=== PATIENT | male | born 1985 | race Caucasian/White ===

== ENCOUNTER 2017-06-17 13:05 | Inpatient (IN) | payer SELFPAY ==
[2017-06-17] MEDS ORDERED: HYDROCODONE/ACETAMINOPHEN 5-325 MG TABLET PO ONE (13:46)
--- NOTE | 2017-06-17 14:01 | ER Document Report ---
ED Hand/Wrist Injury - General Mode of Arrival: Ambulatory Information source: Patient TRAVEL OUTSIDE OF THE [place] IN LAST 30 DAYS: No - HPI Injury to: Middle finger Onset: Other - Where: Work Timing: Still present Quality of pain: Pressure, Sharp Severity: Severe Pain Level: 5 Context: Swelling <HARJINDER CARPENTER - Last Filed: 06/17/17 18:04> <RIA GENAO - Last Filed: 06/17/17 18:37> - General Chief Complaint: Finger Injury Stated Complaint: FINGER INJURY Time Seen by Provider: 06/17/17 13:37 Notes: 31-year-old male presents to ED for pain swelling and infection to the right middle finger. He states that he thinks he got a piece of wire and it either or Saturday. He states it is been swelling and getting more more painful each day. 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 (HARJINDER CARPENTER) - Related Data Allergies/Adverse Reactions: No Known Allergies Allergy (Unverified 06/17/17 13:24) Home Medications: Current Home Medications Cyanocobalamin (Vitamin B-12) [Vitamin B-12] 500 mcg PO DAILY 06/17/17 [History] Past Medical History - Social History Smoking Status: Current Every Day Smoker Chew tobacco use (# tins/day): No Frequency of alcohol use: None Drug Abuse: None Renal/ Medical History: Denies: Hx Peritoneal Dialysis Surgical Hx: Negative - Immunizations Hx Diphtheria, Pertussis, Tetanus Vaccination: Yes <HARJINDER CARPENTER - Last Filed: 06/17/17 18:04> - General Information source: Patient - Social History Family History: Reviewed & Not Pertinent <RIA GENAO - Last Filed: 06/17/17 18:37> Physical Exam - Vital signs Interpretation: Normal - General General appearance: Appears well, Alert - HEENT Head: Normocephalic, Atraumatic Eyes: Normal Pupils: PERRL - Respiratory Respiratory status: No respiratory distress Chest status: Nontender Breath sounds: Normal Chest palpation: Normal - Cardiovascular Rhythm: Regular Heart sounds: Normal auscultation Murmur: No - Abdominal Inspection: Normal Distension: No distension Bowel sounds: Normal Tenderness: Nontender Organomegaly: No organomegaly - Back Back: Normal, Nontender - Extremities General upper extremity: Normal temperature General lower extremity: Normal inspection, Nontender, Normal color, Normal ROM , Normal temperature, Normal weight bearing. No: Laura's sign Wrist: Tender Hand: Tender, No evidence of human bite, No evidence of FB, Swelling, Other - erythema, decreased rom to 3rd finger - Neurological Neuro grossly intact: Yes Cognition: Normal Orientation: AAOx4 Pinky Coma Scale Eye Opening: Spontaneous Pinky Coma Scale Verbal: Oriented [place] Coma Scale Motor: Obeys Commands Pinky Coma Scale Total: 15 Speech: Normal Motor strength normal: LUE, RUE, LLE, RLE Sensory: Normal - Psychological Associated symptoms: Normal affect, Normal mood - Skin Skin Temperature: Warm Skin Moisture: Dry Skin Color: Normal <HARJINDER CARPENTER - Last Filed: 06/17/17 18:04> - Vital signs Vitals: Temp Pulse Resp BP Pulse Ox 98.4 F 99 16 132/77 H 98 06/17/17 13:25 06/17/17 13:25 06/17/17 13:25 06/17/17 13:25 06/17/17 13:25 Course - Laboratory Result Diagrams: 06/17/17 15:44 06/17/17 15:44 - Diagnostic Test Radiology reviewed: Image reviewed, Reports reviewed <HARJINDER CARPENTER - Last Filed: 06/17/17 18:04> - Laboratory Result Diagrams: 06/17/17 15:44 06/17/17 15:44 <RIA GENAO - Last Filed: 06/17/17 18:37> - Re-evaluation Re-evalutation: 06/17/17 15:[address] Genao for the infection and he stated that the orthopedic surgeon needs to be consulted. Consulted Dr. Rodriguez who stated that need to get a CBC chemistry blood cultures CRP and sed rate and he will come by and see the patient. He requested that no antibiotics be given at this time. (HARJINDER CARPENTER) Consulted by [facility]. 31-year-old male with swelling of his right middle finger. He has 4 out of 4 Knavel Signs. Concern for Flexor Tenosynovitis. Recommend consult with hand surgery and IV antibiotics. (RIA GENAO) - Vital Signs Vital signs: Temp Pulse Resp BP Pulse Ox 98.4 F 70 20 124/64 100 08/21/17 17:15 06/17/17 17:15 06/17/17 17:15 06/17/17 17:15 06/17/17 17:15 - Laboratory Laboratory results interpreted by me: 06/17/17 06/17/17 15:44 15:44 WBC 13.7 H Eosinophils % 10.5 H Absolute Neutrophils 8.3 H Absolute Eosinophils 1.4 H ESR 16 H Carbon Dioxide 31 H C-Reactive Protein 34.3 H Discharge - Discharge Admitting Provider: shanice Unit Admitted: Surgical Floor <HARJINDER CARPENTER - Last Filed: 06/17/17 18:04> <RIA GENAO - Last Filed: 06/17/17 18:37> - Discharge Clinical Impression: cellulitis third finger right Disposition: ADMITTED INPATIENT
--- NOTE | 2017-06-17 14:19 | RADIOLOGY REPORT (SQ) ---
EXAM DESCRIPTION: FINGER RIGHT COMPLETED DATE/TIME: 06/17/2017 2:00 pm REASON FOR STUDY: possible foreign body right middle finger COMPARISON: None. NUMBER OF VIEWS: Three views. TECHNIQUE: AP, lateral, and oblique images acquired of the right third finger. LIMITATIONS: None. FINDINGS: MINERALIZATION: Normal. BONES: No acute fracture or dislocation. No worrisome bone lesions. SOFT TISSUES: Soft tissue swelling is identified. No radiopaque foreign body is identified. OTHER: No other significant finding. IMPRESSION: Soft tissue swelling without fracture. No radiopaque foreign body is identified. COMMENT: SITE OF TRAUMA/COMPLAINT MARKED/STAMP COMPLETED: Yes TECHNICAL DOCUMENTATION: JOB ID: [id number] [employer]- All Rights Reserved
[2017-06-17] MEDS ORDERED: NORMAL SALINE 1000 ML 1,000 ML IV PRN (15:11)
[2017-06-17] MEDS ORDERED: NORMAL SALINE 1000 ML 1,000 ML IV ONE (15:11)
[2017-06-17 15:55] LABS: ABSOLUTE BASOPHILS # (AUTO) 0.1 10^3/uL (0.0-0.2); ABSOLUTE EOSINOPHILS # (AUTO) 1.4 10^3/uL (0.0-0.6); ABSOLUTE LYMPHOCYTES (AUTO) 3.1 10^3/uL (0.5-4.7); ABSOLUTE MONOCYTES (AUTO) 0.8 10^3/uL (0.1-1.4); ABSOLUTE NEUT (AUTO) 8.3 10^3/uL (1.7-8.2); BASOPHILS % (AUTO) 0.4 % (0-2); EOSINOPHILS % (AUTO) 10.5 % (0-6); HEMATOCRIT 45.2 % (37.9-51.0); HEMOGLOBIN 15.7 g/dL (13.5-17.0); HGB HCT DIFFERENCE 1.9; LYMPHOCYTES % (AUTO) 22.7 % (13-45); MEAN CORPUSCULAR HEMOGLOBIN 32.7 pg (27.0-33.4); MEAN CORPUSCULAR HGB CONC 34.7 g/dL (32.0-36.0); MEAN CORPUSCULAR VOLUME 94 fl (80-97); MONOCYTES % (AUTO) 5.6 % (3-13); RED BLOOD COUNT 4.79 10^6/uL (4.35-5.55); RED CELL DISTRIBUTION WIDTH 12.6 % (11.5-14.0); SEGMENTED NEUTROPHILS % (AUTO) 60.8 % (42-78); WHITE BLOOD COUNT 13.7 10^3/uL (4.0-10.5)
[2017-06-17] MEDS ORDERED: VANCOMYCIN HCL INJ 1000 MG VIAL IV ONE (16:08)
[2017-06-17] MEDS ORDERED: AMPICILLIN SOD/SULBACTAM 3 GM VIAL IV ONE (16:08)
[2017-06-17 16:19] LABS: ALANINE AMINOTRANSFERASE 54 U/L (21-72); ALBUMIN 3.9 g/dL (3.5-5.0); ALKALINE PHOSPHATASE 87 U/L (38-126); ANION GAP 9 (5-19); ASPARTATE AMINO TRANSFERASE 27 U/L (17-59); BILIRUBIN,DIRECT 0.4 mg/dL (0.0-0.4); BILIRUBIN,TOTAL 0.7 mg/dL (0.2-1.3); BLOOD UREA NITROGEN 10 mg/dL (7-20); C-REACTIVE PROTEIN 34.3 mg/L (<10.0); CALCIUM 9.6 mg/dL (8.4-10.2); CARBON DIOXIDE 31 mmol/L (22-30); CHLORIDE 100 mmol/L (98-107); CREATININE RESULT 0.85 mg/dL (0.52-1.25); GLUCOSE 78 mg/dL (75-110); POTASSIUM 4.1 mmol/L (3.6-5.0); SODIUM 139.9 mmol/L (137-145); TOTAL PROTEIN 6.6 g/dL (6.3-8.2)
[2017-06-17 16:33] LABS: ERYTHROCYTE SEDIMENTATION RATE 16 mm/hr (0-15)
[2017-06-17] MEDS ORDERED: GLUCAGON,HUMAN RECOMB 1 MG INJ SUBCUT PRN (17:04)
[2017-06-17] MEDS ORDERED: DEXTROSE 40% GEL 15 GM TUBE PO PRN ×2 (17:04)
[2017-06-17] MEDS ORDERED: ONDANSETRON HCL INJ/PF 4 MG/2 ML SDV IV PRN (17:04)
[2017-06-17] MEDS ORDERED: DEXTROSE 50%-WATER 25 GM/50 ML DISP.SYRIN IV PRN ×2 (17:04)
--- NOTE | 2017-06-17 17:17 | PDOC H&P ---
History of Present Illness Admission Date/PCP: 06/17/17 16:16 Patient complains of: Right middle finger swelling History of Present Illness: ERICKA CASTELLANOS is a 31 year old male who presents emergency room with increasing redness and swelling of his right middle finger. He states about 48 hours ago he began having redness and swelling of this digit. Initially thought there was a fiberoptic wire in his finger since he works for the [employer]. He attempted to decompress with a needle which provided him some relief. But he noticed redness swelling and discomfort returned over the past 24 hours. He has noticed mild fever no chills or sweats. Pain 05/06. Social History Smoking Status: Current Every Day Smoker Family History Parental Family History Reviewed: No Children Family History Reviewed: No Sibling(s) Family History Reviewed.: No Medication/Allergy Allergies/Adverse Reactions: No Known Allergies Allergy (Unverified 06/17/17 13:24) Review of Systems All systems: as per PMH Constitutional: ABSENT: chills, fever(s), headache(s), weight gain, weight loss Eyes: ABSENT: visual disturbances Ears: ABSENT: hearing changes Cardiovascular: ABSENT: chest pain, dyspnea on exertion, edema, orthropnea, palpitations Respiratory: ABSENT: cough, hemoptysis Gastrointestinal: ABSENT: abdominal pain, constipation, diarrhea, hematemesis, hematochezia, nausea, vomiting Genitourinary: ABSENT: dysuria, hematuria Integumentary: ABSENT: rash, wounds Neurological: ABSENT: abnormal gait, abnormal speech, confusion, dizziness, focal weakness, syncope Psychiatric: ABSENT: anxiety, depression, homidical ideation, suicidal ideation Endocrine: ABSENT: cold intolerance, heat intolerance, menstrual abnormalities, polydipsia, polyuria Hematologic/Lymphatic: ABSENT: easy bleeding, easy bruising, lymphadenopathy Physical Exam Vital Signs: Temp Pulse Resp BP Pulse Ox 98.4 F 99 16 132/77 H 98 06/17/17 13:25 06/17/17 13:25 06/17/17 13:25 06/17/17 13:25 06/17/17 13:25 General appearance: PRESENT: no acute distress, well-developed, well-nourished Head exam: PRESENT: atraumatic, normocephalic Eye exam: PRESENT: conjunctiva pink, EOMI, PERRLA. ABSENT: scleral icterus Ear exam: PRESENT: normal external ear exam Mouth exam: PRESENT: moist, tongue midline Neck exam: PRESENT: full ROM. ABSENT: carotid bruit, JVD, lymphadenopathy, thyromegaly Respiratory exam: PRESENT: unlabored Cardiovascular exam: PRESENT: RRR. ABSENT: diastolic murmur, rubs, systolic murmur Pulses: PRESENT: normal dorsalis pedis pul, +2 pedal pulses bilateral Vascular exam: PRESENT: normal capillary refill GI/Abdominal exam: PRESENT: normal bowel sounds, soft. ABSENT: distended, guarding, mass, organolmegaly, rebound, tenderness Rectal exam: PRESENT: deferred Musculoskeletal exam: PRESENT: other - Right hand: Notable redness along the ulnar dorsal aspect of the middle finger along the middle phalanx. Small lesion on the volar aspect for patient attempted decompression no active drainage from this area appreciated. Patient has tenderness volarly along the middle phalanx no tenderness on the proximal phalanx or in the palm. Cap refill less than 2 seconds. Patient has hypoesthesia along the ulnar digital nerve distribution. Digit certainly rests in an extended position. Pain is exacerbated with forced terminal flexion extension. Left Leg: Small lesion along the lateral aspect no active drainage. No streaking erythema. Neurological exam: PRESENT: alert, awake, oriented to person, oriented to place , oriented to time, oriented to situation, CN II-XII grossly intact. ABSENT: motor sensory deficit Psychiatric exam: PRESENT: appropriate affect, normal mood. ABSENT: homicidal ideation, suicidal ideation Skin exam: PRESENT: dry, intact, vesicles, warm. ABSENT: cyanosis, rash Results Impressions: Finger X-Ray 06/17/17 13:45 IMPRESSION: Soft tissue swelling without fracture. No radiopaque foreign body is identified. Assessment & Plan - Diagnosis (1) Cellulitis of right middle finger Is this a current diagnosis for this admission?: Yes Plan: On examination patient has findings of cellulitis of the right middle finger he may also have early onset flexor tenosynovitis at this point I have recommended IV antibiotics including Unasyn and vancomycin. If he fails to see significant improvement in the next 12-16 hours we will set him up for operative decompression. Patient is in agreement with the above plan.
[2017-06-17] MEDS: OXYCODONE-ACETAMINOPHEN 5-325 MG TABLET PO PRN ×2 (18:00→21:39)
[2017-06-17] MEDS ORDERED: VANCOMYCIN HCL INJ 1000 MG VIAL IV SCH (18:00)
[2017-06-17] MEDS ORDERED: AMPICILLIN SOD/SULBACTAM 3 GM VIAL IV SCH (18:00)
[2017-06-17] MEDS: RINGERS SOLUTION,LACTATED 1,000 ML IV PRN (18:06)
[2017-06-17] MEDS: AMPICILLIN SODIUM/SULBACTAM NA 3 GM in NORMAL SALINE 100 ML IV SCH (18:24)
[2017-06-17] MEDS: ZOLPIDEM TARTRATE 5 MG TABLET PO SCH (21:38)
[2017-06-17] MEDS: VANCOMYCIN HCL 1,500 MG in DEXTROSE 5%-WATER 250 ML IV SCH (21:39)
[2017-06-17] MEDS: MORPHINE SULFATE 10 MG/ML INJ IV PRN (22:06)
[2017-06-18] MEDS: AMPICILLIN SODIUM/SULBACTAM NA 3 GM in NORMAL SALINE 100 ML IV SCH ×4 (00:06→16:59)
[2017-06-18] MEDS: MORPHINE SULFATE 10 MG/ML INJ IV PRN ×8 (00:06→22:40)
[2017-06-18] MEDS: OXYCODONE-ACETAMINOPHEN 5-325 MG TABLET PO PRN ×3 (01:36→16:42)
[2017-06-18] MEDS: VANCOMYCIN HCL 1,500 MG in DEXTROSE 5%-WATER 250 ML IV SCH ×3 (03:44→16:17)
[2017-06-18] MEDS ORDERED: VANCOMYCIN HCL 1,500 MG in DEXTROSE 5%-WATER 250 ML IV SCH (06:00)
[2017-06-18 07:07] LABS: ABSOLUTE BASOPHILS # (AUTO) 0.1 10^3/uL (0.0-0.2); ABSOLUTE EOSINOPHILS # (AUTO) 1.5 10^3/uL (0.0-0.6); ABSOLUTE LYMPHOCYTES (AUTO) 3.9 10^3/uL (0.5-4.7); ABSOLUTE MONOCYTES (AUTO) 0.7 10^3/uL (0.1-1.4); BASOPHILS % (AUTO) 0.5 % (0-2); EOSINOPHILS % (AUTO) 12.1 % (0-6); HEMATOCRIT 39.1 % (37.9-51.0); LYMPHOCYTES % (AUTO) 31.8 % (13-45); MEAN CORPUSCULAR HEMOGLOBIN 33.1 pg (27.0-33.4); MEAN CORPUSCULAR HGB CONC 35.1 g/dL (32.0-36.0); MEAN CORPUSCULAR VOLUME 94 fl (80-97); MONOCYTES % (AUTO) 6.1 % (3-13); RED BLOOD COUNT 4.14 10^6/uL (4.35-5.55); RED CELL DISTRIBUTION WIDTH 12.6 % (11.5-14.0); SEGMENTED NEUTROPHILS % (AUTO) 49.5 % (42-78); WHITE BLOOD COUNT 12.1 10^3/uL (4.0-10.5)
[2017-06-18 07:08] LABS: HEMOGLOBIN 13.7 g/dL (13.5-17.0)
[2017-06-18] MEDS ORDERED: DEXAMETHASONE SOD PHOSPHATE INJ 4 MG/1 ML VIAL ONE (09:48)
[2017-06-18] MEDS ORDERED: LIDOCAINE 2% INJ-PF (20 MG/ML) 10 ML AMPUL ONE (09:48)
[2017-06-18] MEDS ORDERED: ONDANSETRON HCL INJ/PF 4 MG/2 ML SDV ONE (09:48)
[2017-06-18] MEDS ORDERED: SUCCINYLCHOLINE CHLORIDE INJ 200 MG/10 ML VIAL ONE (09:48)
--- NOTE | 2017-06-18 10:58 | PDOC PROGRESS REPORT ---
Subjective Progress Note for:: 06/18/17 Subjective:: Patient seen and evaluated on rounds this morning. States he continued to have considerable discomfort in his right middle finger is slightly improved with morphine but notes the pain and swelling have not improved with antibiotics. Has noted somewhat increased temperature denies chills. Physical Exam Vital Signs: Temp Pulse Resp BP Pulse Ox 99.3 F 65 18 156/55 H 95 06/18/17 08:30 06/18/17 08:30 06/18/17 08:30 06/18/17 08:30 06/18/17 08:30 Intake & Output 06/17/17 06/18/17 06/19/17 06:59 06:59 06:59 Intake Total 2067 70 Balance 2067 70 Weight 124.3 kg 124.3 kg Musculoskeletal exam: PRESENT: other - Right middle finger: Redness and swelling along the ulnar aspect of the middle finger there is increased swelling compared to previous examination likely in indicative of formation of abscess. Patient has no tenderness along the A1 suly mild tenderness along the palmar aspect of the middle phalanx and proximal phalanx. Minimal tenderness on the distal phalanx. Cap refill less than 2 seconds. Patient has hypoesthesia along the ulnar digital nerve distribution. Results Laboratory Results: 06/18/17 06:32 06/18/17 06:32 WBC 12.1 H RBC 4.14 L Hgb 13.7 Hct 39.1 MCV 94 MCH 33.1 MCHC 35.1 RDW 12.6 Plt Count 246 Seg Neutrophils % 49.5 Lymphocytes % 31.8 Monocytes % 6.1 Eosinophils % 12.1 H Basophils % 0.5 Absolute Neutrophils 6.0 Absolute Lymphocytes 3.9 Absolute Monocytes 0.7 Absolute Eosinophils 1.5 H Absolute Basophils 0.1 Impressions: Finger X-Ray 06/17/17 13:45 IMPRESSION: Soft tissue swelling without fracture. No radiopaque foreign body is identified. Assessment & Plan - Diagnosis (1) Cellulitis of right middle finger Is this a current diagnosis for this admission?: Yes Plan: On examination patient has worsening of his current symptoms. At this point we will proceed with formal irrigation and debridement of the patient's right middle finger in the operating room.
[2017-06-18 15:16] LABS: CREATININE RESULT 0.75 mg/dL (0.52-1.25)
[2017-06-18] MEDS ORDERED: BACITRACIN INJ 50,000 UNIT VIAL ONE (16:41)
[2017-06-18] MEDS ORDERED: MIDAZOLAM 2 MG/2 ML INJ ONE (17:49)
[2017-06-18] MEDS ORDERED: FENTANYL CITRATE INJ/PF 100 MCG/2 ML AMPUL ONE (17:49)
[2017-06-18] MEDS ORDERED: PROPOFOL INJ 200 MG/20 ML VIAL IV ONE (17:49)
[2017-06-18] MEDS ORDERED: DIPHENHYDRAMINE HCL 50 MG/ML VIAL IV PRN (18:23)
[2017-06-18] MEDS ORDERED: MORPHINE SULFATE 10 MG/ML INJ IV PRN (18:23)
[2017-06-18] MEDS ORDERED: MEPERIDINE HCL/PF INJ 25 MG/1 ML DISP.SYRIN IV PRN (18:23)
[2017-06-18] MEDS ORDERED: PROMETHAZINE HCL INJ 25 MG/1 ML VIAL IV PRN (18:23)
[2017-06-18] MEDS ORDERED: FENTANYL CITRATE INJ/PF 100 MCG/2 ML AMPUL IV PRN ×3 (18:23)
[2017-06-18] MEDS ORDERED: BUPIVACAINE HCL 0.5 % INJ/PF 30 ML SDV ONE (18:29)
[2017-06-18] MEDS ORDERED: BUPIVACAINE HCL 0.5 % INJ/PF 30 ML SDV INJ ONE (18:35)
--- NOTE | 2017-06-18 18:40 | Operative Report ---
Operative Report DATE OF SURGERY: 06/18/17 PREOPERATIVE DIAGNOSIS: Right Middle Finger Abscess POSTOPERATIVE DIAGNOSIS: Same OPERATION: Excision Debridement Right Middle Finger Abscess/Flexor Sheath SURGEON: EVELYN PIERSON ANESTHESIA: LMAC TISSUE REMOVED OR ALTERED: Culture Aerobic/Anaerobic/Fungal/AFB COMPLICATIONS: None ESTIMATED BLOOD LOSS: Minimal PROCEDURE: Indication for above procedure: 31-year-old male who presented to emergency room with redness swelling of his right middle finger. Patient was concerned of possible foreign body was unable to localize a foreign body. Patient was seen in emergency room where x-rays demonstrated no evidence of foreign body. Patient was admitted for placement of IV antibiotics and observation. On 06/18/17 patient was seen and evaluated and had no significant improvement. At that point we discussed treatment options are recommended operative intervention which included irrigation and debridement right middle finger. Risks and benefits were explained to the patient patient verbalized understanding consented for the procedure. Procedure In Detail: Patient was seen and evaluated in the preoperative holding area. The RIGHT upper extremity was initialized and marked. Patient did not receive preoperative antibiotics given he is receiving scheduled Unasyn and vancomycin. Patient was taken back to the operative room where transferred to the operative table and placed under MAC anesthesia. Once they were adequately anesthetized a nonsterile tourniquet was placed on the upper extremity. A surgical team debriefing was performed ensuring all instrumentation was available, the surgical procedure was discussed with possible concerns reviewed. Digital block was performed utilizing 10 cc of 50: 50 mixture of 1% lidocaine and half percent Marcaine without epinephrine. The upper extremity was prepped with Betadine and draped in a sterile fashion. A timeout was done identifying correct patient, procedure and extremity everyone in attendance agree with this and verbalized no concerns. The extremity was elevated and the tourniquet was inflated to 250 mmHg. Utilizing a mid lateral approach patient's wound was extended proximally and distally. Significant amount of purulent material was encountered. Cultures were obtained from this region. The neurovascular bundle was identified and retracted. The flexor sheath was opened there was evidence of cloudy appearing material within the flexor sheath but no gross purulence was appreciated. Any nonviable tissue was excised. The wound was then copiously irrigated with normal saline. Tissue was sent for culture, fungal and AFB. Given the involvement of the flexor sheath at the level of the middle phalanx I turned my attention to opening the sheath proximally at the A1 suly. Oblique skin incision was made centered over the A1 suly. Blunt dissection was performed. The ulnar and radial neurovascular bundle was retracted until the A1 suly was directly visualized. The A1 suly was then incised and released to the palmar aponeurotic suly and A2 suly distally. Once again thick synovial fluid that was slightly cloudy was encountered but no gross purulence. This wound was copiously irrigated with normal saline. I then irrigated through the distal incision into the proximal incision to ensure I got complete irrigation of the flexor sheath. Completion of the case a Drew drain was passed from the distal wound into the proximal wound. The edges of the most proximal incision were closed with interrupted 4-0 nylon suture. There was a 8 mm defect along the ulnar aspect of the finger due to nonviable tissue secondary to patient's infection. 15 cc of 0.5% Marcaine without epinephrine was injected for postoperative pain control. Wound was dressed with Xeroform 4 x 4's and a loosely applied Coban. Tourniquet was deflated. Patient had normal capillary refill and good skin turgor. Sponge counts, instrument counts, needle counts counts were correct. Patient was then awoken from anesthesia. Transferred from the operating room table to the operating room stretcher. There was no intraoperative complications patient tolerated procedure well stable to PACU. Postoperative plan: Patient will be continued on IV antibiotics which will be changed as per patient 's sensitivities. Will proceed with dressing change on postop day #2 including chlorhexidine soaks and sterile water.
[2017-06-18] MEDS: CIPROFLOXACIN 400 MG/D5W RTU 400 MG/200 ML RTUPB IV SCH (22:36)
[2017-06-18] MEDS: ZOLPIDEM TARTRATE 5 MG TABLET PO SCH (22:40)
[2017-06-19] MEDS ORDERED: VANCOMYCIN HCL 1,500 MG in DEXTROSE 5%-WATER 250 ML IV SCH (02:00)
[2017-06-19] MEDS: AMPICILLIN SODIUM/SULBACTAM NA 3 GM in NORMAL SALINE 100 ML IV SCH ×4 (02:16→17:30)
[2017-06-19] MEDS: VANCOMYCIN HCL 1,500 MG in DEXTROSE 5%-WATER 250 ML IV SCH ×3 (03:39→18:36)
[2017-06-19 04:22] LABS: ABSOLUTE BASOPHILS # (AUTO) 0.1 10^3/uL (0.0-0.2); ABSOLUTE LYMPHOCYTES (AUTO) 1.8 10^3/uL (0.5-4.7); ABSOLUTE MONOCYTES (AUTO) 0.3 10^3/uL (0.1-1.4); ABSOLUTE NEUT (AUTO) 12.2 10^3/uL (1.7-8.2); BASOPHILS % (AUTO) 0.5 % (0-2); EOSINOPHILS % (AUTO) 0.1 % (0-6); HEMATOCRIT 38.7 % (37.9-51.0); HEMOGLOBIN 13.2 g/dL (13.5-17.0); HGB HCT DIFFERENCE 0.9; LYMPHOCYTES % (AUTO) 12.6 % (13-45); MEAN CORPUSCULAR HEMOGLOBIN 32.5 pg (27.0-33.4); MEAN CORPUSCULAR HGB CONC 34.1 g/dL (32.0-36.0); MEAN CORPUSCULAR VOLUME 96 fl (80-97); MONOCYTES % (AUTO) 2.1 % (3-13); RED BLOOD COUNT 4.05 10^6/uL (4.35-5.55); RED CELL DISTRIBUTION WIDTH 12.5 % (11.5-14.0); SEGMENTED NEUTROPHILS % (AUTO) 84.7 % (42-78); WHITE BLOOD COUNT 14.4 10^3/uL (4.0-10.5)
[2017-06-19] MEDS ORDERED: OXYCODONE-ACETAMINOPHEN 5-325 MG TABLET ONE (05:53)
[2017-06-19] MEDS: OXYCODONE-ACETAMINOPHEN 5-325 MG TABLET PO PRN ×4 (05:56→21:30)
[2017-06-19] MEDS: RINGERS SOLUTION,LACTATED 1,000 ML IV PRN (05:58)
--- NOTE | 2017-06-19 09:10 | PDOC PROGRESS REPORT ---
Subjective Progress Note for:: 06/19/17 Subjective:: Patient lying recumbent in hospital bed aroused from sleep this morning. Patient reports that his hand still feels swollen however he notes that there is no longer as much tingling and numbness that he experienced previously. Patient notes he is comfortable and pain is well controlled. Physical Exam Vital Signs: Temp Pulse Resp BP Pulse Ox 36.8 C 69 16 111/62 95 06/19/17 08:14 06/19/17 08:14 06/19/17 08:14 06/19/17 08:14 06/19/17 08:14 Intake & Output 06/18/17 06/19/17 06/20/17 06:59 06:59 06:59 Intake Total 2067 2863 Output Total 2 Balance 2067 2861 Weight 124.3 kg 124.3 kg General appearance: PRESENT: no acute distress, well-developed, well-nourished Head exam: PRESENT: atraumatic, normocephalic Vascular exam: PRESENT: normal capillary refill Additional comments: On exam patient's right upper extremity is still in postoperative compression dressing. Patient maintains full range of motion of upper extremity with limited range of motion at his wrist. This is likely due to postoperative swelling Musculoskeletal exam: PRESENT: ambulatory Neurological exam: PRESENT: alert, awake, oriented to person, oriented to place , oriented to time, oriented to situation, CN II-XII grossly intact. ABSENT: motor sensory deficit Psychiatric exam: PRESENT: appropriate affect, normal mood. ABSENT: homicidal ideation, suicidal ideation Skin exam: PRESENT: dry, intact, warm. ABSENT: cyanosis, rash Results Laboratory Results: 06/19/17 04:02 06/18/17 14:51 06/18/17 06/19/17 14:51 04:02 WBC 14.4 H RBC 4.05 L Hgb 13.2 L Hct 38.7 MCV 96 MCH 32.5 MCHC 34.1 RDW 12.5 Plt Count 232 Seg Neutrophils % 84.7 H Lymphocytes % 12.6 L Monocytes % 2.1 L Eosinophils % 0.1 Basophils % 0.5 Absolute Neutrophils 12.2 H Absolute Lymphocytes 1.8 Absolute Monocytes 0.3 Absolute Eosinophils 0.0 Absolute Basophils 0.1 Creatinine 0.75 Est GFR ( Amer) > 60 Est GFR (Non-Af Amer) > 60 Impressions: Finger X-Ray 06/17/17 13:45 IMPRESSION: Soft tissue swelling without fracture. No radiopaque foreign body is identified. Assessment & Plan - Diagnosis (1) Cellulitis of right middle finger Is this a current diagnosis for this admission?: Yes Plan: Patient is 1 day status post debridement of right wrist and middle finger. He will remain in the hospital today and continue to work with nursing staff on pain management as well as with occupational therapy to attain maximum strength and mobility of the right upper extremity. He will then be discharged home and follow-up with Dr. gibbs at [facility] for surgery 2 weeks postoperatively.
[2017-06-19] MEDS: MORPHINE SULFATE 10 MG/ML INJ IV PRN ×7 (09:23→22:37)
[2017-06-19] MEDS: CIPROFLOXACIN 400 MG/D5W RTU 400 MG/200 ML RTUPB IV SCH ×2 (11:17→21:29)
[2017-06-19] MEDS: ZOLPIDEM TARTRATE 5 MG TABLET PO SCH (21:29)
[2017-06-20] MEDS: MORPHINE SULFATE 10 MG/ML INJ IV PRN ×7 (00:06→20:38)
[2017-06-20] MEDS: AMPICILLIN SODIUM/SULBACTAM NA 3 GM in NORMAL SALINE 100 ML IV SCH ×4 (00:07→17:19)
[2017-06-20] MEDS: VANCOMYCIN HCL 1,500 MG in DEXTROSE 5%-WATER 250 ML IV SCH ×3 (02:07→18:49)
[2017-06-20] MEDS: OXYCODONE-ACETAMINOPHEN 5-325 MG TABLET PO PRN ×4 (04:46→22:33)
[2017-06-20 04:49] LABS: ABSOLUTE EOSINOPHILS # (AUTO) 0.3 10^3/uL (0.0-0.6); ABSOLUTE LYMPHOCYTES (AUTO) 3.5 10^3/uL (0.5-4.7); ABSOLUTE MONOCYTES (AUTO) 0.6 10^3/uL (0.1-1.4); ABSOLUTE NEUT (AUTO) 11.8 10^3/uL (1.7-8.2); BASOPHILS % (AUTO) 0.2 % (0-2); EOSINOPHILS % (AUTO) 1.7 % (0-6); HEMOGLOBIN 12.7 g/dL (13.5-17.0); HGB HCT DIFFERENCE 1.1; LYMPHOCYTES % (AUTO) 21.8 % (13-45); MEAN CORPUSCULAR HEMOGLOBIN 32.8 pg (27.0-33.4); MEAN CORPUSCULAR HGB CONC 34.4 g/dL (32.0-36.0); MEAN CORPUSCULAR VOLUME 96 fl (80-97); MONOCYTES % (AUTO) 3.9 % (3-13); RED BLOOD COUNT 3.88 10^6/uL (4.35-5.55); RED CELL DISTRIBUTION WIDTH 12.8 % (11.5-14.0); SEGMENTED NEUTROPHILS % (AUTO) 72.4 % (42-78); WHITE BLOOD COUNT 16.2 10^3/uL (4.0-10.5)
[2017-06-20] MEDS: CIPROFLOXACIN 400 MG/D5W RTU 400 MG/200 ML RTUPB IV SCH (09:20)
[2017-06-20 10:57] LABS: CREATININE RESULT 0.77 mg/dL (0.52-1.25)
[2017-06-20] MEDS ORDERED: ONDANSETRON HCL INJ/PF 4 MG/2 ML SDV IV PRN (11:30)
[2017-06-20] MEDS: KETOROLAC TROMETHAMINE INJ/PF 30 MG/1 ML SDV IV PRN (14:10)
[2017-06-20] MEDS: RINGERS SOLUTION,LACTATED 1,000 ML IV PRN (14:13)
--- NOTE | 2017-06-20 21:13 | PDOC PROGRESS REPORT ---
Subjective Progress Note for:: 06/20/17 Subjective:: 31-year-old gentleman complaining of pain. He is taking [id number] narcotics. Denies any issues overnight. Physical Exam Vital Signs: Temp Pulse Resp BP Pulse Ox 36.4 C 52 L 18 108/64 100 06/20/17 15:44 06/20/17 15:44 06/20/17 15:44 06/20/17 15:44 06/20/17 15:44 Intake & Output 06/19/17 06/20/17 06/21/17 06:59 06:59 06:59 Intake Total 2864 4605 450 Output Total 2 1 Balance 2862 4605 449 Weight 124.3 kg General appearance: PRESENT: no acute distress Front of Hands Image: 1 - Dressing is dry clean and intact. There is some serous drainage on the Kerlix dressing. Patient has gross light sensation to touch. Able to move the digits but with pain. Has good brisk capillary refill Results Laboratory Results: 06/20/17 03:40 06/20/17 10:14 06/20/17 06/20/17 03:40 10:14 WBC 16.2 H RBC 3.88 L Hgb 12.7 L Hct 37.0 L MCV 96 MCH 32.8 MCHC 34.4 RDW 12.8 Plt Count 260 Seg Neutrophils % 72.4 Lymphocytes % 21.8 Monocytes % 3.9 Eosinophils % 1.7 Basophils % 0.2 Absolute Neutrophils 11.8 H Absolute Lymphocytes 3.5 Absolute Monocytes 0.6 Absolute Eosinophils 0.3 Absolute Basophils 0.0 Creatinine 0.77 Est GFR ( Amer) > 60 Est GFR (Non-Af Amer) > 60 06/18/17 18:10 Finger - Right Middle Finger Gram Stain - Final Impressions: Finger X-Ray 06/17/17 13:45 IMPRESSION: Soft tissue swelling without fracture. No radiopaque foreign body is identified. Assessment & Plan - Diagnosis (1) Cellulitis of right middle finger Is this a current diagnosis for this admission?: Yes Plan: Dressing will stay on until tomorrow where Dr. Escudero will remove and inspect. Continue antibiotics. Continue pain control.
[2017-06-20] MEDS: ZOLPIDEM TARTRATE 5 MG TABLET PO SCH (22:33)
[2017-06-20] MEDS: CIPROFLOXACIN HCL 500 MG TABLET PO SCH (22:33)
[2017-06-21] MEDS: AMPICILLIN SODIUM/SULBACTAM NA 3 GM in NORMAL SALINE 100 ML IV SCH ×5 (00:18→23:10)
[2017-06-21] MEDS: KETOROLAC TROMETHAMINE INJ/PF 30 MG/1 ML SDV IV PRN ×4 (00:18→18:28)
[2017-06-21] MEDS: MORPHINE SULFATE 10 MG/ML INJ IV PRN ×10 (00:18→23:45)
[2017-06-21] MEDS: VANCOMYCIN HCL 1,500 MG in DEXTROSE 5%-WATER 250 ML IV SCH ×3 (03:24→18:07)
[2017-06-21] MEDS: OXYCODONE-ACETAMINOPHEN 5-325 MG TABLET PO PRN ×6 (03:25→23:10)
--- NOTE | 2017-06-21 07:26 | PDOC PROGRESS REPORT ---
Subjective Subjective:: Patient seen and examined this morning. Continues to have discomfort in his finger which is controlled with current pain regimen. Denies fever chills or sweats. Physical Exam Vital Signs: Temp Pulse Resp BP Pulse Ox 97.6 F 74 18 113/59 L 97 06/20/17 23:40 06/20/17 23:40 06/20/17 23:40 06/20/17 23:40 06/20/17 23:40 Intake & Output 06/20/17 06/21/17 06/22/17 06:59 06:59 06:59 Intake Total 4605 2189 Output Total 1 Balance 4605 2188 Musculoskeletal exam: PRESENT: other - Right middle finger: Dressing removed today. Small area of skin necrosis along the ulnar-sided wound. There is scant residual purulence. Tenderness at the wound site. No tenderness along the flexor sheath. Patient has hypoesthesia along the tip of the finger which is equivalent to adjacent fingers which were not infected. Cap refill less than 2 seconds. No purulent drainage from the proximal incision. Results Laboratory Results: 06/20/17 03:40 06/20/17 10:14 06/20/17 10:14 Creatinine 0.77 Est GFR ( Amer) > 60 Est GFR (Non-Af Amer) > 60 06/18/17 18:10 Finger - Right Middle Finger Gram Stain - Final 06/18/17 18:10 Finger - Right Middle Finger Wound Culture - Final Mrsa (Meth Resis Staph Aureus) Escherichia Coli No Anaerobic Organisms Impressions: Finger X-Ray 06/17/17 13:45 IMPRESSION: Soft tissue swelling without fracture. No radiopaque foreign body is identified. Assessment & Plan - Diagnosis (1) Cellulitis of right middle finger Is this a current diagnosis for this admission?: Yes (2) Abscess of finger of right hand Is this a current diagnosis for this admission?: Yes Plan: Patient's digit has improved since surgical treatment however he continues to have residual scant purulent drainage. At this point I do not feel he requires repeat irrigation debridement but will continue the chlorhexidine soaks he has been encouraged to begin digit range of motion multiple times throughout the day. Current sensitivities demonstrate MRSA susceptible to Bactrim and E. coli susceptible to Cipro but given the fact he continues to have residual drainage we will continue IV antibiotics. If wound shows improvement in the next 24 hours would consider discharge home on p.o. Bactrim and Cipro.
[2017-06-21] MEDS: CIPROFLOXACIN HCL 500 MG TABLET PO SCH ×2 (10:16→21:39)
[2017-06-21] MEDS ORDERED: MORPHINE SULFATE 10 MG/ML INJ ONE (16:18)
[2017-06-21] MEDS: ZOLPIDEM TARTRATE 5 MG TABLET PO SCH (21:40)
[2017-06-22] MEDS: VANCOMYCIN HCL 1,500 MG in DEXTROSE 5%-WATER 250 ML IV SCH ×2 (02:36→09:38)
[2017-06-22] MEDS: KETOROLAC TROMETHAMINE INJ/PF 30 MG/1 ML SDV IV PRN ×2 (02:36→09:38)
[2017-06-22] MEDS: MORPHINE SULFATE 10 MG/ML INJ IV PRN ×5 (02:37→13:02)
[2017-06-22 04:54] LABS: ABSOLUTE BASOPHILS # (AUTO) 0.1 10^3/uL (0.0-0.2); ABSOLUTE EOSINOPHILS # (AUTO) 1.1 10^3/uL (0.0-0.6); ABSOLUTE LYMPHOCYTES (AUTO) 4.3 10^3/uL (0.5-4.7); ABSOLUTE MONOCYTES (AUTO) 0.7 10^3/uL (0.1-1.4); ABSOLUTE NEUT (AUTO) 5.4 10^3/uL (1.7-8.2); BASOPHILS % (AUTO) 0.7 % (0-2); EOSINOPHILS % (AUTO) 9.7 % (0-6); HEMATOCRIT 36.4 % (37.9-51.0); HEMOGLOBIN 12.5 g/dL (13.5-17.0); HGB HCT DIFFERENCE 1.1; LYMPHOCYTES % (AUTO) 36.7 % (13-45); MEAN CORPUSCULAR HEMOGLOBIN 32.7 pg (27.0-33.4); MEAN CORPUSCULAR HGB CONC 34.4 g/dL (32.0-36.0); MEAN CORPUSCULAR VOLUME 95 fl (80-97); MONOCYTES % (AUTO) 6.1 % (3-13); RED BLOOD COUNT 3.83 10^6/uL (4.35-5.55); RED CELL DISTRIBUTION WIDTH 12.7 % (11.5-14.0); SEGMENTED NEUTROPHILS % (AUTO) 46.8 % (42-78); WHITE BLOOD COUNT 11.6 10^3/uL (4.0-10.5)
[2017-06-22] MEDS: OXYCODONE-ACETAMINOPHEN 5-325 MG TABLET PO PRN ×3 (05:26→13:57)
[2017-06-22] MEDS: AMPICILLIN SODIUM/SULBACTAM NA 3 GM in NORMAL SALINE 100 ML IV SCH ×2 (05:26→11:33)
[2017-06-22] MEDS: CIPROFLOXACIN HCL 500 MG TABLET PO SCH (09:29)
[2017-06-22 15:13] VITALS: BP 156/55
--- NOTE | 2017-06-25 11:24 | PDOC DISCHARGE SUMMARY ---
General - Admit/Disc Date/PCP Admission Date/Primary Care Provider: 06/17/17 17:04 Discharge Date: 06/22/17 - Discharge Diagnosis (1) Cellulitis of right middle finger Is this a current diagnosis for this admission?: Yes (2) Abscess of finger of right hand Is this a current diagnosis for this admission?: Yes - Additional Information Resuscitation Status: Full Code Discharge Diet: Regular Discharge Activity: Activity As Tolerated Home Medications: Cyanocobalamin (Vitamin B-12) [Vitamin B-12] 500 mcg PO DAILY 06/17/17 Ciprofloxacin HCl [Cipro 500 mg Tablet] 500 mg PO BID #20 tablet 06/21/17 Oxycodone HCl/Acetaminophen [Percocet 7.5-325 mg Tablet] 1 - 2 tab PO ASDIR PRN #55 tab 06/21/17 Sulfamethoxazole/Trimethoprim [Bactrim Ds Tablet] 2 each PO BID #40 tablet 06/21 History of Present Illness History of Present Illness: ERICKA CASTELLANOS is a 31 year old male who presents emergency room with increasing redness and swelling of his right middle finger. He states about 48 hours ago he began having redness and swelling of this digit. Initially thought there was a fiberoptic wire in his finger since he works for the [employer]. He attempted to decompress with a needle which provided him some relief. But he noticed redness swelling and discomfort returned over the past 24 hours. He has noticed mild fever no chills or sweats. Pain 7/10. Hospital Course Hospital Course: Patient was admitted to the orthopedic service on 06/17/2017 and started on vancomycin and Unasyn for bacterial prophylaxis. Over 24 hours patient failed to see improvement and there was worsening of his symptoms. At that point we discussed treatment options and I recommended proceeding with operative intervention. On 06/18/2017 patient underwent irrigation and debridement of his right finger. Postoperatively patient began seeing improvement there was some residual purulence on postop day #3 after dressing change. Cultures did come back positive for MRSA and E. coli patient was being covered adequately with the vancomycin, Cipro and Unasyn. On 06/22/17 patient's wound was healing appropriately there is no evidence of worsening infection and notable improvement. Patient's white count decreased to 11.2 from 16. At that point with the cultures finalized the decision was made for discharge to home. Physical Exam Vital Signs: Temp Pulse Resp BP Pulse Ox 97.6 F 65 19 156/55 H 100 06/22/17 15:10 06/22/17 15:10 06/22/17 15:10 06/22/17 15:10 06/22/17 15:10 Results Laboratory Results: 06/22/17 03:57 06/20/17 10:14 Impressions: Finger X-Ray 06/17/17 13:45 IMPRESSION: Soft tissue swelling without fracture. No radiopaque foreign body is identified. Plan Discharge Plan: Patient was to follow-up with my office and 7-10 days for wound check. Patient was started on Bactrim and Cipro adequately covering E. coli and MRSA as per sensitivities. Patient was continued on twice daily chlorhexidine soaks. If patient notices increasing pain, stiffness, redness, drainage or temperature greater than 101.5 patient is to contact my office to be seen sooner than his scheduled appointment. Patient was read the above instructions and understood the above instructions and was orthopedically medically stable for discharge on 06/22 616
== END 2017-06-22 15:25 | disposition home or self-care (01) | DRG 983 ==
LOC: ER 13:05 → EH 16:16 → UNDOADMIN 16:16 → 5 17:04 → EH 17:50
PROVIDERS: ADMIT Orthopaedic Surgery; ATTEND Orthopaedic Surgery
PROC: 0L9700Z Drainage of Right Hand Tendon with Drainage Device, Open Approach (ICD-10-PCS; 2017-06-18)
PROC: 0LB70ZZ Excision of Right Hand Tendon, Open Approach (ICD-10-PCS; principal; 2017-06-18 16:30)
DX: L03.011 Cellulitis of right finger (principal); M65.041 Abscess of tendon sheath, right hand; B95.62 Methicillin resistant Staphylococcus aureus infection as the cause of diseases classified elsewhere; B96.20 Unspecified Escherichia coli [E. coli] as the cause of diseases classified elsewhere; F17.200 Nicotine dependence, unspecified, uncomplicated
CPT/HCPCS: 00400; 36415; 80053; 80202; 82565; 85025; 85652; 86140; 87015; 87040; 87070; 87075; 87077; 87101; 87116; 87186; 87205; 87206; 99284; J0295; J0330; J0744; J1100; J1885; J2250; J2270; J2405; J2704; J3010; J3370; J3490; J7030; J7060; J7120